=== PATIENT | female | born 1965 | race African-American/Black ===

== ENCOUNTER → 2017-12-19 | Outpatient (CLI) | payer MEDICARE ==
[2017-12-19 15:35] LABS: HCT 41.2 % (34.0-46.0); HGB 13.5 gm/dL (11.4-16.0); MCH 27.5 pg (25.0-35.0); MCHC 32.8 g/dL (31.0-37.0); MCV 83.9 fL (80.0-100.0); Mean Platelet Volume 7.1; Platelet Count 224 k/uL (150-450); RBC 4.91 m/uL (3.80-5.40); RDW 14.3 % (11.5-15.5); WBC 4.8 k/uL (3.8-10.6)
[2017-12-19 15:54] LABS: ALT 20 U/L (9-52); AST 17 U/L (14-36); Albumin 3.7 g/dL (3.5-5.0); Alkaline Phosphatase 82 U/L (38-126); Anion Gap 9 mmol/L; Blood Urea Nitrogen 11 mg/dL (7-17); Calcium 9.3 mg/dL (8.4-10.2); Carbon Dioxide 31 mmol/L (22-30); Chloride 101 mmol/L (98-107); Cholesterol 207 mg/dL (<200); Glucose 84 mg/dL (74-99); HDL Cholesterol 68 mg/dL (40-60); LDL Cholesterol,Calculated 120 mg/dL (0-99); Potassium 4.1 mmol/L (3.5-5.1); Sodium 141 mmol/L (137-145); Total Bilirubin 0.3 mg/dL (0.2-1.3); Total Protein 6.9 g/dL (6.3-8.2); Triglycerides 95 mg/dL (<150)
[2017-12-19 16:15] VITALS: BP 161/100; PULSE 75; TEMP 97.6; BMI 45.3
[2017-12-20 00:32] LABS: Iron Saturation 18.93 (12.00-45.00)
[2017-12-20 00:37] LABS: Vitamin D 25 Hydroxy 15.7 ng/mL (30.0-100.0)
[2017-12-20 02:34] LABS: Hemoglobin A1C 5.2 % (4.0-6.0)
--- NOTE | 2018-01-05 20:30 | P.HPBAR ---
Bariatric H&P - History & Physicial H&P Date: 12/19/17 History & Physicial: Visit/CC: Patient initial contact: Initial weight: Initial weight in pounds: Height: Initial BMI: Last weight: Current weight: Current weight in pounds: Current BMI: [place] body weight (based on NIH guidelines): Excess body weight loss: The patient is a 51 year-old F who presents for Bariatric Assessment. DATE OF SERVICE: 12/19/2017 REASON FOR CONSULTATION: Initial bariatric evaluation HISTORY OF PRESENT ILLNESS: Alexa Anna is a 52-year-old female who comes in with long-standing morbid obesity. She reports trying diet pills including Weight Watchers as well as portion control. Most weight loss was 10 pounds. She is about trouble sleeping including sleep apnea. She has chronic lower extremity edema. She has developed hypertension including osteoarthritis of the back, bilateral knees, left ankle secondary to obesity. She has a family history of diabetes type 2 in her brother. She comes in for evaluation for the sleeve gastrectomy. She also has a family history of morbid obesity. At height of 5 feet 2.5 inches, ideal body weight is 135 pounds. Her highest weight was 252 pounds. She comes in 251 pounds. Body mass index is 45.4. She is 116 pounds overweight. PAST MEDICAL HISTORY: 1. Morbid obesity. 2. Body mass index of 45.4 3. Osteoarthritis of the knees. 4. Osteoarthritis of the left ankle. 5. Osteoarthritis of the lower back. 6. Obstructive sleep apnea. 7. Hypertensive heart disease. 8. Tendinitis right elbow. PAST SURGICAL HISTORY: 1. Cholecystectomy 2. Bilateral carpal tunnel release 3. History of back surgery HOME MEDICATIONS: 1. [place] 2. Vitamin D ALLERGIES: Penicillin SOCIAL HISTORY: No active tobacco use. Past tobacco use. FAMILY HISTORY: No family history of ulcerative colitis disease or Crohn's disease. Family history of morbid obesity. No lupus in the family. No reports of stomach or esophageal cancer. Family history of diabetes type 2. REVIEW OF ORGAN SYSTEMS: CONSTITUTIONAL: At height of 5 feet 2.5 inches, ideal body weight is 135 pounds. Her highest weight was 252 pounds. She comes in 251 pounds. Body mass index is 45.4. She is 116 pounds overweight. HEENT: Denies any active troubles with vision or hearing. No troubles with swallowing. ENDOCRINE: No diabetes. No hypothyroidism. CARDIOVASCULAR: No reports of palpitations or heart attacks or chest pain. RESPIRATORY: Has daytime somnolence. No asthma. GI: Denies any bright red blood per rectum. No diarrhea or constipation. MUSCULOSKELETAL: Has lower back pain and joint pain. Has osteoarthritis of the knees. History of bilateral lower extremity edema. NEURO: No headaches. No seizure disorders. PSYCH: No depression or suicidal ideation. RHEUMATOLOGIC: No lupus. No rheumatoid arthritis. HEMATOLOGIC: Denies any abnormal bleeding or bruising. No personal history of DVTs. SKIN: No rash. No skin cancer. PHYSICAL EXAM: VITAL SIGNS: Height 5 foot 2.5 inches, weight 251 pounds. BMI 45.4 Vital Signs Temp 97.6 F 12/19/17 16:09 Pulse 75 12/19/17 16:09 Resp BP 161/100 12/19/17 16:09 Pulse Ox GENERAL: Well-developed in no acute distress. HEENT: No scleral icterus. Extraocular movements grossly intact. Hears conversational speech. No nasal drainage. NECK: Supple without lymphadenopathy. CHEST: Nonlabored respirations with equal bilateral excursions. CARDIOVASCULAR: Regular rate and regular rhythm. Distal 2+ pulses. ABDOMEN: Obese, soft, nontender, nondistended. MUSCULOSKELETAL: No clubbing, cyanosis. Gross strength 5/5 distal lower extremities. 2+ pre-tibial pitting edema. Cervical spine tenderness. NEURO: No focal or lateralizing signs. Cranial nerves 2 through 12 grossly within normal limits. PSYCH: Appropriate affect. Alert and oriented to person, place and time. SKIN: Good skin turgor. Well perfused. ASSESSMENT: 1. Morbid obesity due to excess calories 2. Body mass index of 45.4 3. Osteoarthritis of the knees. 4. Osteoarthritis of the left ankle. 5. Osteoarthritis of the lower back. 6. Obstructive sleep apnea. 7. Hypertensive heart disease. 8. Tendinitis right elbow. 9. Dietary surveillance and counseling PLAN: 1. Surgical options including a band, gastric bypass, sleeve gastrectomy were described in detail. Alternatives such as gastric balloon including duodenal switch were described. 2. The [place] bariatric surgical collaborative data and outcomes calculator were described with surgical options. 3. Recommend a bariatric metabolic panel to evaluate for micro- including macronutrient deficiencies. 4. For history of daytime somnolence, recommend evaluation and treatment for sleep apnea. 5. Dietary surveillance and counseling was reviewed, I have asked increased protein intake to at least 70 grams daily. 6. Will need cardiac risk assessment. 7. Recommend medical risk assessment. 8. Psych assessment per insurance guidelines. 9. Follow up upon completion of upper endoscopy. 10. Recommend 12-lead EKG with family history of hypertensive heart disease. 11. Recommend upper endoscopy. Thank you for this consultation. Past Medical History Additional Past Medical History / Comment(s): gallstones History of Any Multi-Drug Resistant Organisms: None Reported Past Surgical History: Back Surgery, Orthopedic Surgery Additional Past Surgical History / Comment(s): clau carpal tunnel, tendonitis rt elbow and rt wrist, Past Anesthesia/Blood Transfusion Reactions: No Reported Reaction Past Psychological History: No Psychological Hx Reported Smoking Status: Former smoker Past Alcohol Use History: Occasional Additional Past Alcohol Use History / Comment(s): quit smoking 2010, started smoking age 16, 3 cigarettes daily Past Drug Use History: None Reported - Past Family History Mother Family Medical History: No Reported History Results - Labs 12/19/17 15:00 12/19/17 15:00 Bariatric Checklist Checklist: Plan: Checklist: EGD: 1. Hiatal hernia: 2. H. Pylori: HgbA1c: Vitamin D: Smoking: Former smoker Primary care physician referral: Psychiatry clearance: Cardiology clearance: Sleep study: Diet journal: VTE risk score: VTE risk level: Rehab needs at discharge:
== END | disposition home or self-care (01) ==
LOC: BARWHC3 14:08
PROVIDERS: ATTEND Surgery Plastic and Reconstructive Surgery
DX: E66.01 Morbid (severe) obesity due to excess calories (principal); M17.0 Bilateral primary osteoarthritis of knee; M47.9 Spondylosis, unspecified; M19.072 Primary osteoarthritis, left ankle and foot; G47.33 Obstructive sleep apnea (adult) (pediatric); I11.9 Hypertensive heart disease without heart failure; M77.9 Enthesopathy, unspecified; Z98.890 Other specified postprocedural states; Z87.891 Personal history of nicotine dependence; Z90.49 Acquired absence of other specified parts of digestive tract; Z79.891 Long term (current) use of opiate analgesic; Z68.42 Body mass index [BMI] 45.0-49.9, adult; Z79.899 Other long term (current) drug therapy; Z88.0 Allergy status to penicillin
CPT/HCPCS: 84425; 80061; 80053; 82607; 82728; 82746; 83540; 83550; 84443; 85027; 82306; 83036; 93005; G0463; 99211

== ENCOUNTER → 2018-01-16 | Day surgery (SDC) | payer MEDICARE ==
[2018-01-14 11:04] VITALS: BMI 44.2
[~2018-01-16] MED LIST: LACTATED RINGERS 1,000 ML IV SCH; LIDOCAINE 1% 20 ML VIAL (10MG/ML) FOR IV START INTRADERMA PRN; LIDOCAINE 1% INJ 10MG/ML (20 ML MDV) ONE; MIDAZOLAM 2 MG/2 ML VIAL IV PRN; PROPOFOL 10 MG/ML 20 ML VIAL IV ONE
--- NOTE | 2018-01-16 07:48 | P.GSHP ---
History of Present Illness H&P Date: 01/16/18 CHIEF COMPLAINT: GERD HISTORY OF PRESENT ILLNESS: The patient is a 52-year-old female who presents reports gastroesophageal reflux disease. Upper endoscopy was offered for further evaluation and management. PAST MEDICAL HISTORY: Please see list. PAST SURGICAL HISTORY: Please see list. MEDICATIONS: Please see list. ALLERGIES: Please see list. SOCIAL HISTORY: No illicit drug use FAMILY HISTORY: No reports of Crohn disease or ulcerative colitis. REVIEW OF ORGAN SYSTEMS: CONSTITUTIONAL: No reports of fevers or chills. GI: Denies any blood in stools or constipation. PHYSICAL EXAM: VITAL SIGNS: Stable GENERAL: Well-developed and pleasant in no acute distress. HEENT: No scleral icterus. Extraocular movements grossly intact. Moist buccal mucosa. NECK: Supple without lymphadenopathy. CHEST: Unlabored respirations. Equal bilateral excursions. CARDIOVASCULAR: Regular rate and rhythm. Distal 2+ pulses. ABDOMEN: Soft, nondistended. MUSCULOSKELETAL: No clubbing, cyanosis, or edema. ASSESSMENT: 1. Gastroesophageal reflux disease PLAN: 1. Recommend proceeding with an upper endoscopy Past Medical History Additional Past Medical History / Comment(s): CHRONIC PAIN History of Any Multi-Drug Resistant Organisms: None Reported Past Surgical History: Back Surgery, Cholecystectomy, Orthopedic Surgery Additional Past Surgical History / Comment(s): clau carpal tunnel, tendonitis rt elbow and rt wrist,. COLONOSCOPY Past Anesthesia/Blood Transfusion Reactions: No Reported Reaction Smoking Status: Former smoker - Past Family History Mother Family Medical History: No Reported History Medications and Allergies Home Medications Medication Instructions Recorded Confirmed Type Ergocalciferol [Vitamin D2] 50,000 unit PO FR 05/01/16 01/14/18 History Hydrocodone/Acetaminophen [Lortab 1 tab PO TID 05/01/16 01/14/18 History 7.5-325 mg Tablet] Cyclobenzaprine [Flexeril] 10 mg PO HS 01/14/18 01/14/18 History Allergies Allergy/AdvReac Type Severity Reaction Status Date / Time Penicillins Allergy swelling Verified 01/14/18 10:58 in mouth
[2018-01-16 11:16] VITALS: TEMP 97.2
--- NOTE | 2018-01-16 12:01 | P.PCN ---
Date of Procedure: 01/16/18 Description of Procedure: PREOPERATIVE DIAGNOSIS: Gastroesophageal reflux disease. Morbid obesity. POSTOPERATIVE DIAGNOSIS: Morbid obesity. Gastritis. Gastroesophageal reflux disease. OPERATION: Esophagogastroduodenoscopy with biopsies along antrum. SURGEON: Libby Carey MD ANESTHESIA: MAC. INDICATIONS: The patient is a 52-year-old female who presents with a history of reflux disease. Benefits and risks of the procedure were described. Informed consent was obtained. DESCRIPTION: The patient was brought into the endoscopy suite and laid in the left lateral decubitus position. An Olympus gastroscope was passed along the posterior oropharynx down to the distal esophagus where the squamocolumnar junction was encountered at 37 cm from the incisors. The stomach was entered and no bile reflux was found. Additional findings are listed below. Biopsies with cold forceps were obtained of the antrum. The first through third portion of the duodenum was examined and unremarkable. Retroflexion of the scope confirmed Hill grade 3 lower esophageal valve. The squamocolumnar junction demostrated LA grade A erosive esophagitis. The stomach was desufflated. The patient tolerated the procedure well. FINDINGS: Squamocolumnar junction 37 cm from the incisors. Diaphragmatic hiatus at 37 cm. Hill grade 3 lower esophageal valve. LA grade A erosive esophagitis. No active duodenitis. Chronic gastritis RECOMMENDATIONS: Continue medical therapy. Further recommendations pending results of pathology report. Upper endoscopy as needed. Plan - Discharge Summary New Discharge Prescriptions: No Action Hydrocodone/Acetaminophen [Lortab 7.5-325 mg Tablet] 1 tab PO TID Ergocalciferol [Vitamin D2] 50,000 unit PO FR Cyclobenzaprine [Flexeril] 10 mg PO HS Discharge Medication List Ergocalciferol [Vitamin D2] 50,000 unit PO FR 05/01/16 [History] Hydrocodone/Acetaminophen [Lortab 7.5-325 mg Tablet] 1 tab PO TID 05/01/16 [ History] Cyclobenzaprine [Flexeril] 10 mg PO HS 01/14/18 [History]
[2018-01-16 12:09] VITALS: BP 138/65; PULSE 80; RESP 16
== END | disposition home or self-care (01) ==
LOC: ORWHC2ENDO 09:38
PROVIDERS: ATTEND Surgery Plastic and Reconstructive Surgery
DX: K29.50 Unspecified chronic gastritis without bleeding (principal); B96.81 Helicobacter pylori [H. pylori] as the cause of diseases classified elsewhere; K22.10 Ulcer of esophagus without bleeding; Z87.891 Personal history of nicotine dependence; E66.01 Morbid (severe) obesity due to excess calories; Z68.41 Body mass index [BMI] 40.0-44.9, adult; Z79.891 Long term (current) use of opiate analgesic; Z79.899 Other long term (current) drug therapy; Z88.0 Allergy status to penicillin
CPT/HCPCS: 43239; J2001; J2704; 88305; 88342

== ENCOUNTER → 2018-02-13 | Outpatient (CLI) | payer MEDICARE ==
[2018-02-13 15:26] VITALS: BP 148/82; PULSE 66; RESP 14; TEMP 98.8; BMI 44.2
--- NOTE | 2018-02-13 15:40 | P.PN ---
Subjective Progress Note Date: 02/13/18 DATE OF SERVICE: 02/13/2018 CHIEF COMPLAINT: Bariatric evaluation HISTORY OF PRESENT ILLNESS: Alexa Anna is a 52-year-old female who initially presents to the bariatric office 12/19/2017. She is 2 months out. At height of 5 feet 2.5 inches, her ideal body weight is 135 pounds. Her highest weight was 252 pounds. She comes in 245 pounds from her last visit of 251 pounds , 2 months ago. She has lost 7 pounds. Body mass index is 45.4 down to 44.3. She is 110 pounds overweight. She comes in and has lost weight. She has H. pylori infection. PAST MEDICAL HISTORY: 1. Morbid obesity. 2. Body mass index of 45.4, initial 3. Osteoarthritis of the knees. 4. Osteoarthritis of the left ankle. 5. Osteoarthritis of the lower back. 6. Obstructive sleep apnea. 7. Hypertensive heart disease. 8. Tendinitis right elbow. PAST SURGICAL HISTORY: 1. Cholecystectomy 2. Bilateral carpal tunnel release 3. History of back surgery HOME MEDICATIONS: 1. [place] 2. Vitamin D ALLERGIES: Penicillin SOCIAL HISTORY: No active tobacco use. Past tobacco use. FAMILY HISTORY: No family history of ulcerative colitis disease or Crohn's disease. Family history of morbid obesity. No lupus in the family. No reports of stomach or esophageal cancer. Family history of diabetes type 2. REVIEW OF ORGAN SYSTEMS: CONSTITUTIONAL: At height of 5 feet 2.5 inches, ideal body weight is 135 pounds. Her highest weight was 252 pounds. She comes in 245 pounds. Body mass index is 45.4 down to 44.3. She is 110 pounds overweight. HEENT: Denies any active troubles with vision or hearing. No troubles with swallowing. ENDOCRINE: No diabetes. No hypothyroidism. CARDIOVASCULAR: No reports of palpitations or heart attacks or chest pain. RESPIRATORY: Has daytime somnolence. No asthma. GI: Denies any bright red blood per rectum. No diarrhea or constipation. MUSCULOSKELETAL: Has lower back pain and joint pain. Has osteoarthritis of the knees. History of bilateral lower extremity edema. NEURO: No headaches. No seizure disorders. PSYCH: No depression or suicidal ideation. RHEUMATOLOGIC: No lupus. No rheumatoid arthritis. HEMATOLOGIC: Denies any abnormal bleeding or bruising. No personal history of DVTs. SKIN: No rash. No skin cancer. PHYSICAL EXAM: VITAL SIGNS: Height 5 foot 2.5 inches, weight 245 pounds. BMI 44.3 Vital Signs Temp 98.8 F 02/13/18 15:11 Pulse 66 02/13/18 15:11 Resp 14 02/13/18 15:11 BP 148/82 02/13/18 15:11 Pulse Ox GENERAL: Well-developed in no acute distress. HEENT: No scleral icterus. Extraocular movements grossly intact. Hears conversational speech. No nasal drainage. NECK: Supple without lymphadenopathy. CHEST: Nonlabored respirations with equal bilateral excursions. CARDIOVASCULAR: Regular rate and regular rhythm. Distal 2+ pulses. ABDOMEN: Obese, soft, nontender, nondistended. MUSCULOSKELETAL: No clubbing, cyanosis. Gross strength 5/5 distal lower extremities. NEURO: No focal or lateralizing signs. Cranial nerves 2 through 12 grossly within normal limits. PSYCH: Appropriate affect. Alert and oriented to person, place and time. SKIN: Good skin turgor. Well perfused. EGD FINDINGS: Squamocolumnar junction 37 cm from the incisors. Diaphragmatic hiatus at 37 cm. Hill grade 3 lower esophageal valve. LA grade A erosive esophagitis. No active duodenitis. Chronic gastritis Final Pathologic Diagnosis GASTRIC ANTRUM, BIOPSY: CHRONIC ACTIVE GASTRITIS WITH FOCAL FEATURES OF ULCERATION. IMMUNOPEROXIDASE STAIN POSITIVE FOR HELICOBACTER PYLORI ORGANISMS LABS: Vitamin D low Vitamin B-1 low EKG: abnormal ASSESSMENT: 1. Morbid obesity due to excess calories 2. Body mass index of 45.4 to 44.3 3. Osteoarthritis of the knees. 4. Osteoarthritis of the left ankle. 5. Osteoarthritis of the lower back. 6. Obstructive sleep apnea. 7. Hypertensive heart disease. 8. Dietary surveillance and counseling 9. Vitamin D deficiency 10. Thiamine deficiency 11. H. pylori gastritis 12. Abnormal EKG PLAN: 1. Recommend H. pylori treatment. 2. Replace Vitamin D. 3. EKG is abnormal and recommend referral to pbx mechanic. 4. Need psych assessment. 5. Vitamin D supplement advised. Objective - Vital Signs Vital signs: Vital Signs Temp 98.8 F 02/13/18 15:11 Pulse 66 02/13/18 15:11 Resp 14 02/13/18 15:11 BP 148/82 02/13/18 15:11 Pulse Ox Intake & Output 02/12/18 02/13/18 02/13/18 18:59 06:59 18:59 Weight 111.584 kg
== END | disposition home or self-care (01) ==
LOC: BARWHC3 14:29
PROVIDERS: ATTEND Surgery Plastic and Reconstructive Surgery
DX: E66.01 Morbid (severe) obesity due to excess calories (principal); M17.0 Bilateral primary osteoarthritis of knee; M19.079 Primary osteoarthritis, unspecified ankle and foot; M19.90 Unspecified osteoarthritis, unspecified site; G47.33 Obstructive sleep apnea (adult) (pediatric); I11.9 Hypertensive heart disease without heart failure; E55.9 Vitamin D deficiency, unspecified; E51.9 Thiamine deficiency, unspecified; B96.81 Helicobacter pylori [H. pylori] as the cause of diseases classified elsewhere; R94.31 Abnormal electrocardiogram [ECG] [EKG]; Z68.41 Body mass index [BMI] 40.0-44.9, adult; Z87.891 Personal history of nicotine dependence; Z88.0 Allergy status to penicillin; Z79.891 Long term (current) use of opiate analgesic; Z79.899 Other long term (current) drug therapy
CPT/HCPCS: 99211

== ENCOUNTER → 2018-07-17 | Outpatient (CLI) | payer MEDICARE | END | disposition home or self-care (01) | LOC: LABWHC1 15:06 | PROVIDERS: ATTEND Surgery Plastic and Reconstructive Surgery | DX: Z53.9 Procedure and treatment not carried out, unspecified reason (principal) ==

== ENCOUNTER → 2018-07-17 | Outpatient (CLI) | payer MEDICARE ==
[2018-07-17 14:15] VITALS: BP 139/79; PULSE 72; TEMP 97.6; BMI 44.0
--- NOTE | 2018-07-17 14:50 | P.PN ---
Subjective Progress Note Date: 07/17/18 HPI: She comes in for her sleeve gastrectomy. "I am ready for my surgery." ABDOMEN: No abdominal pain ASSESSMENT: 1. Morbid obesity PLAN: 1. 2 week protein diet 2. Sleeve gastrectomy consent reviewed 3. [facility] results reviewed Objective - Vital Signs Vital signs: Vital Signs Temp 97.6 F 07/17/18 14:10 Pulse 72 07/17/18 14:10 Resp BP 139/79 07/17/18 14:10 Pulse Ox Intake & Output 07/16/18 07/17/18 07/17/18 18:59 06:59 18:59 Weight 111.085 kg
[2018-07-17 16:53] LABS: Basophils % (A) 0 %; Eosinophils # (A) 0.1 k/uL (0-0.7); Eosinophils % (A) 2 %; HCT 41.6 % (34.0-46.0); HGB 13.5 gm/dL (11.4-16.0); Lymphocytes # (A) 2.2 k/uL (1.0-4.8); Lymphocytes % (A) 35 %; MCH 27.7 pg (25.0-35.0); MCHC 32.4 g/dL (31.0-37.0); MCV 85.5 fL (80.0-100.0); Mean Platelet Volume 7.1; Monocytes # (A) 0.4 k/uL (0-1.0); Monocytes % (A) 6 %; Neutrophils # (A) 3.4 k/uL (1.3-7.7); Neutrophils % (A) 55 %; Platelet Count 265 k/uL (150-450); RBC 4.87 m/uL (3.80-5.40); RDW 14.8 % (11.5-15.5); WBC 6.2 k/uL (3.8-10.6)
[2018-07-18 03:56] LABS: Albumin 3.9 g/dL (3.80-4.90); Albumin/Globulin Ratio 2.05 (1.20-2.10); Anion Gap 7.1 mmol/L (4.00-12.00); Calcium 8.8 mg/dL (8.7-10.3); Carbon Dioxide 28.9 mmol/L (21.6-31.8); Globulin 1.9 g/dL (2.1-3.7); Potassium 4.3 mmol/L (3.5-5.5); Total Bilirubin 0.3 mg/dL (0.2-1.2); Total Protein 5.8 g/dL (6.2-8.2)
== END | disposition home or self-care (01) ==
LOC: BARWHC3 13:50
PROVIDERS: ATTEND Surgery Plastic and Reconstructive Surgery
DX: Z01.812 Encounter for preprocedural laboratory examination (principal); E66.01 Morbid (severe) obesity due to excess calories; Z68.41 Body mass index [BMI] 40.0-44.9, adult
CPT/HCPCS: 80053; 85025; 36415; G0463; 99211

== ENCOUNTER → 2018-07-26 | Outpatient (CLI) | payer MEDICARE ==
--- NOTE | 2018-07-26 12:58 | P.PN ---
Subjective Progress Note Date: 07/26/18 DATE OF SERVICE: 07/26/2018 CHIEF COMPLAINT: Status post sleeve gastrectomy HISTORY OF PRESENT ILLNESS: Alexa Anna is a 52-year-old female who is status post sleeve gastrectomy 07/22/2018. She is tolerating liquids and had 3 bowel movements without blood. No reports of infection of her incision. At height of 5 feet 2.5 inches, her ideal body weight is 135 pounds. Her highest weight was 252 pounds. She comes in 239 pounds from 244 pounds, 2 weeks ago. She has lost 5 pounds in 2 weeks. Body mass index is 45.4 down to 43.1. Percent excess weight loss is 11% PHYSICAL EXAM: VITAL SIGNS: Height 5 foot 2.5 inches, weight 239 pounds. BMI 43.1 Vital Signs Temp 98.5 F 07/26/18 11:32 Pulse 75 07/26/18 11:32 Resp BP 155/79 07/26/18 11:32 Pulse Ox GENERAL: Well-developed in no acute distress. HEENT: No scleral icterus. Extraocular movements grossly intact. Hears conversational speech. No nasal drainage. NECK: Supple without lymphadenopathy. CHEST: Nonlabored respirations with equal bilateral excursions. CARDIOVASCULAR: Regular rate and regular rhythm. Distal 2+ pulses. ABDOMEN: Obese, soft, nontender, nondistended. No cellulitis or infection. MUSCULOSKELETAL: No clubbing, cyanosis. Gross strength 5/5 distal lower extremities. NEURO: No focal or lateralizing signs. Cranial nerves 2 through 12 grossly within normal limits. PSYCH: Appropriate affect. Alert and oriented to person, place and time. SKIN: Good skin turgor. Well perfused. ASSESSMENT: 1. Morbid obesity due to excess calories 2. Body mass index of 45.4 to 43.1 3. Osteoarthritis of the knees. 4. Osteoarthritis of the left ankle. 5. Osteoarthritis of the lower back. 6. Obstructive sleep apnea. 7. Hypertensive heart disease. 8. Dietary surveillance and counseling 9. Vitamin D deficiency 10. Thiamine deficiency 11. H. pylori gastritis 12. Status post sleeve gastrectomy PLAN: 1. Recommend 64 ounces daily advised. 2. Recommend stage II bariatric diet with protein shakes 3. Follow-up in 2 weeks.
[2018-07-26 14:35] VITALS: BP 155/79; PULSE 75; TEMP 98.5; BMI 43.1
== END | disposition home or self-care (01) ==
LOC: BARWHC3 11:32
PROVIDERS: ATTEND Surgery Plastic and Reconstructive Surgery
DX: Z48.815 Encounter for surgical aftercare following surgery on the digestive system (principal); E66.01 Morbid (severe) obesity due to excess calories; M17.0 Bilateral primary osteoarthritis of knee; M19.072 Primary osteoarthritis, left ankle and foot; M47.816 Spondylosis without myelopathy or radiculopathy, lumbar region; G47.33 Obstructive sleep apnea (adult) (pediatric); I11.9 Hypertensive heart disease without heart failure; E55.9 Vitamin D deficiency, unspecified; E51.9 Thiamine deficiency, unspecified; K29.70 Gastritis, unspecified, without bleeding; B96.81 Helicobacter pylori [H. pylori] as the cause of diseases classified elsewhere; Z71.3 Dietary counseling and surveillance; Z68.41 Body mass index [BMI] 40.0-44.9, adult; Z98.84 Bariatric surgery status
CPT/HCPCS: 99211

== ENCOUNTER → 2018-07-31 | Outpatient (CLI) | payer MEDICARE ==
[2018-07-31 10:47] VITALS: BP 137/77; PULSE 62; TEMP 97.7; BMI 41.5
== END | disposition home or self-care (01) ==
LOC: BARWHC3 10:05
PROVIDERS: ATTEND Surgery Plastic and Reconstructive Surgery
DX: E66.01 Morbid (severe) obesity due to excess calories (principal); Z68.41 Body mass index [BMI] 40.0-44.9, adult
CPT/HCPCS: 97802; G0463; 99211

== ENCOUNTER → 2018-08-14 | Outpatient (CLI) | payer MEDICARE ==
--- NOTE | 2018-08-14 14:59 | P.PN ---
Subjective Progress Note Date: 08/14/18 HPI: She is s/p sleeve gastrectomy. I have lost my butt! No fevers or chills. ABDOMEN: Has left upper quadrant incision with serosanguinous drainage. No infection. A/P: 1. Get 1 month labs 2. Exercise next month. 3. Local wound care described.
[2018-08-14 16:19] LABS: HCT 44.9 % (34.0-46.0); HGB 14.2 gm/dL (11.4-16.0); MCH 26.8 pg (25.0-35.0); MCHC 31.6 g/dL (31.0-37.0); Mean Platelet Volume 7.4; Platelet Count 261 k/uL (150-450); RBC 5.28 m/uL (3.80-5.40); RDW 14.4 % (11.5-15.5); WBC 5.1 k/uL (3.8-10.6)
[2018-08-14 16:21] LABS: Partial Thromboplastin Time 25.9 sec (22.0-30.0); Prothrombin Time 10.4 sec (9.0-12.0)
[2018-08-15 03:36] LABS: Parathyroid Hormone Intact 109.7 pg/mL (14.0-72.0)
[2018-08-15 04:04] LABS: Iron Saturation 16.47 (12.00-45.00)
[2018-08-15 04:07] LABS: Albumin 4.3 g/dL (3.80-4.90); Albumin/Globulin Ratio 1.95 (1.20-2.10); Anion Gap 11.7 mmol/L (4.00-12.00); Calcium 9.5 mg/dL (8.7-10.3); Carbon Dioxide 27.3 mmol/L (21.6-31.8); Globulin 2.2 g/dL (2.1-3.7); LDL Cholesterol,Calculated 110.4 mg/dL (0.0-131.0); Magnesium 1.7 mg/dL (1.5-2.4); Phosphorus 3.5 mg/dL (2.4-5.1); Potassium 3.7 mmol/L (3.5-5.5); Total Bilirubin 0.4 mg/dL (0.3-1.2); Total Protein 6.5 g/dL (6.2-8.2); VLDL Calculation 17.6 mg/dL (5.00-40.00)
[2018-08-15 04:15] LABS: Folate, Serum 9.3 ng/mL
[2018-08-15 05:14] LABS: Hemoglobin A1C 5.7 % (4.0-6.0)
[2018-08-15 10:48] VITALS: BP 111/74; PULSE 69; TEMP 97.6; BMI 40.3
[2018-08-15 13:56] LABS: Zinc, Serum 88 ug/dL (60-130)
[2018-08-16 08:13] LABS: Vitamin B1 51 ug/L (38-122)
[2018-08-16 08:16] LABS: Vitamin A 29 ug/dL (38-106)
== END | disposition home or self-care (01) ==
LOC: BARWHC3 13:56
PROVIDERS: ATTEND Surgery Plastic and Reconstructive Surgery
DX: Z48.815 Encounter for surgical aftercare following surgery on the digestive system (principal); E66.01 Morbid (severe) obesity due to excess calories; E21.1 Secondary hyperparathyroidism, not elsewhere classified; E89.1 Postprocedural hypoinsulinemia; D50.9 Iron deficiency anemia, unspecified; K90.9 Intestinal malabsorption, unspecified; E55.9 Vitamin D deficiency, unspecified; K76.9 Liver disease, unspecified; N19 Unspecified kidney failure; K50.90 Crohn's disease, unspecified, without complications; Z98.84 Bariatric surgery status
CPT/HCPCS: 36415; 80053; 80061; 82306; 82525; 82607; 82728; 82746; 83036; 83540; 83550; 83735; 83970; 84100; 84134; 84255; 84425; 84443; 84590; 84630; 85027; 85610; 85730; 99211

== ENCOUNTER → 2019-06-11 | Outpatient (CLI) | payer MEDICARE ==
--- NOTE | 2019-06-11 17:26 | P.PN ---
Subjective Progress Note Date: 06/11/19 DATE OF SERVICE: 06/11/2019 CHIEF COMPLAINT: Status post sleeve gastrectomy HISTORY OF PRESENT ILLNESS: Alexa Anna is a 52-year-old female who is status post sleeve gastrectomy 07/22/2018. She is 1 year out. "I have no problems since surgery." She is unhappy with her legs and abdomen from her ex cess skin. She comes in with a new problem of fluid leaking from the belly button unrelated to her bariatric surgery. No reports of gastroesophageal reflux disease. She also comes in with problems with hygiene and lower back pain from her pannus. She is evaluating for removal of her pannus. At height of 5 feet 2.5 inches, her ideal body weight is 135 pounds. Her highest weight was 252 pounds. She comes in 217 pounds from 224 pounds, 10 months ago. She has been lost to follow up. She has lost 7 pounds in 10 months since her last visit. Lifetime weight loss of 35 pounds. Body mass index is 45.4 down to 39.1. Percent excess weight loss is 30 %. PAST MEDICAL HISTORY: 1. Morbid obesity. 2. Body mass index of 45.4, initial 3. Osteoarthritis of the knees. 4. Osteoarthritis of the left ankle. 5. Osteoarthritis of the lower back. 6. Obstructive sleep apnea. 7. Hypertensive heart disease. 8. Tendinitis right elbow. 9. Hypothyroidism PAST SURGICAL HISTORY: 1. Cholecystectomy 2. Bilateral carpal tunnel release 3. History of back surgery HOME MEDICATIONS: Home Medications Medication Instructions Recorded Confirmed Cyclobenzaprine [Flexeril] 10 mg PO HS 01/14/18 07/23/19 Levothyroxine Sodium [Synthroid] 50 mcg PO DAILY 07/12/18 07/23/19 Calcium Citrate 1,200 mg PO DAILY 06/24/19 07/23/19 Ergocalciferol [Vitamin D2 50,000 unit PO DAILY 06/24/19 07/23/19 (DRISDOL)] Vitamin A Acetate [Vitamin A] 10,000 unit PO DAILY 06/24/19 07/23/19 Previous Rx's Medication Instructions Recorded Omeprazole 40 mg PO DAILY #30 capsule. 02/13/18 Nystatin 100,000 Unit/gm Powd 1 applic TOPICAL BID #60 powder 06/11/19 [Mycostatin Powder] ALLERGIES: Penicillin SOCIAL HISTORY: No active tobacco use. Past tobacco use. FAMILY HISTORY: No family history of ulcerative colitis disease or Crohn's disease. Family history of morbid obesity. No lupus in the family. No reports of stomach or esophageal cancer. Family history of diabetes type 2. REVIEW OF ORGAN SYSTEMS: CONSTITUTIONAL: At height of 5 feet 2.5 inches, ideal body weight is 135 pounds. Her highest weight was 252 pounds, BMI 45.5 HEENT: Denies any active troubles with vision or hearing. No troubles with swallowing. ENDOCRINE: No diabetes. No hypothyroidism. CARDIOVASCULAR: No reports of palpitations or heart attacks or chest pain. RESPIRATORY: Has daytime somnolence. No asthma. GI: Denies any bright red blood per rectum. No diarrhea or constipation. MUSCULOSKELETAL: Has lower back pain and joint pain. Has osteoarthritis of the knees. History of bilateral lower extremity edema improved. NEURO: No headaches. No seizure disorders. PSYCH: No depression or suicidal ideation. RHEUMATOLOGIC: No lupus. No rheumatoid arthritis. HEMATOLOGIC: Denies any abnormal bleeding or bruising. No personal history of DVTs. SKIN: No rash. No skin cancer. Has panniculitis. PHYSICAL EXAM: VITAL SIGNS: Height 5 foot 2.5 inches, weight 217 pounds. BMI 39.1 Vital Signs Temp 98.2 F 06/11/19 17:00 Pulse 67 06/11/19 17:00 Resp BP 156/87 06/11/19 17:00 Pulse Ox GENERAL: Well-developed in no acute distress. HEENT: No scleral icterus. Extraocular movements grossly intact. Hears conversational speech. No nasal drainage. NECK: Supple without lymphadenopathy. CHEST: Nonlabored respirations with equal bilateral excursions. CARDIOVASCULAR: Regular rate and regular rhythm. Distal 2+ pulses. ABDOMEN: No active drainage from the umbilicus. No hernia. Moderate sized pannus over pubis 4-cm with hyperpigmentation. MUSCULOSKELETAL: No clubbing, cyanosis. Gross strength 5/5 distal lower extremities. NEURO: No focal or lateralizing signs. Cranial nerves 2 through 12 grossly within normal limits. PSYCH: Appropriate affect. Alert and oriented to person, place and time. SKIN: Good skin turgor. Well perfused. ASSESSMENT: 1. Morbid obesity due to excess calories 2. Body mass index of 45.4 to 39.1 3. Osteoarthritis of the knees. 4. Osteoarthritis of the left ankle. 5. Osteoarthritis of the lower back. 6. Obstructive sleep apnea. 7. Hypertensive heart disease. 8. Dietary surveillance and counseling 9. Vitamin D deficiency 10. Thiamine deficiency 11. H. pylori gastritis 12. Status post sleeve gastrectomy 13. Panniculitis PLAN: 1. Recommend CT of abdomen/pelvis for drainage of the umbilicus and possible urachal cyst. 2. Recommmend treatment of panniculitis with Nystatin powder prescribed. 3. Will need bariatric labs.
[2019-06-13 12:39] VITALS: BP 156/87; PULSE 67; TEMP 98.2; BMI 39.0
== END | disposition home or self-care (01) ==
LOC: BARWHC3 16:11
PROVIDERS: ATTEND Surgery Plastic and Reconstructive Surgery
DX: Z48.815 Encounter for surgical aftercare following surgery on the digestive system (principal); E66.01 Morbid (severe) obesity due to excess calories; M17.0 Bilateral primary osteoarthritis of knee; M19.072 Primary osteoarthritis, left ankle and foot; G47.33 Obstructive sleep apnea (adult) (pediatric); I11.9 Hypertensive heart disease without heart failure; E55.9 Vitamin D deficiency, unspecified; E03.9 Hypothyroidism, unspecified; E51.9 Thiamine deficiency, unspecified; K29.60 Other gastritis without bleeding; M79.3 Panniculitis, unspecified; Z68.39 Body mass index [BMI] 39.0-39.9, adult; Z71.3 Dietary counseling and surveillance; Z98.84 Bariatric surgery status; Z87.891 Personal history of nicotine dependence; Z90.49 Acquired absence of other specified parts of digestive tract; Z79.890 Hormone replacement therapy; Z79.899 Other long term (current) drug therapy; Z88.0 Allergy status to penicillin
CPT/HCPCS: 99211

== ENCOUNTER → 2019-06-13 | Outpatient (CLI) | payer MEDICARE ==
[2019-06-13 11:41] LABS: HCT 44.2 % (34.0-46.0); HGB 14.5 gm/dL (11.4-16.0); MCH 28.4 pg (25.0-35.0); MCHC 32.7 g/dL (31.0-37.0); MCV 86.9 fL (80.0-100.0); Mean Platelet Volume 6.8; Platelet Count 222 k/uL (150-450); RBC 5.09 m/uL (3.80-5.40); RDW 14.2 % (11.5-15.5); WBC 4.9 k/uL (3.8-10.6)
[2019-06-13 11:48] LABS: INR 0.9 (<1.2); Partial Thromboplastin Time 27.1 sec (22.0-30.0); Prothrombin Time 9.8 sec (9.0-12.0)
[2019-06-13 17:42] LABS: Albumin/Globulin Ratio 1.82 (1.60-3.17); Anion Gap 9.2 mmol/L (4.00-12.00); BUN/Creat Ratio 12.86 Ratio (12.00-20.00); Calcium 9.1 mg/dL (8.7-10.3); Carbon Dioxide 23.8 mmol/L (21.6-31.8); Chol/HDL Ratio 3.15; Globulin 2.2 g/dL (1.6-3.3); LDL Cholesterol,Calculated 112.6 mg/dL (0.0-131.0); Magnesium 1.6 mg/dL (1.5-2.4); Non-African American GFR(CKD) 97.5 (60.0-200.0); Phosphorus 3.7 mg/dL (2.4-5.1); Potassium 4.1 mmol/L (3.5-5.5); Total Bilirubin 0.4 mg/dL (0.3-1.2); Total Protein 6.2 g/dL (6.2-8.2); VLDL Calculation 18.4 mg/dL (5.00-40.00)
[2019-06-13 17:45] LABS: Iron Saturation 23.97 (12.00-45.00)
[2019-06-13 17:53] LABS: Ferritin 52.6 ng/mL (10.0-291.0); Vitamin D 25 Hydroxy 16.6 ng/mL (30.0-100.0)
[2019-06-13 17:54] LABS: Folate, Serum 5.7 ng/mL
[2019-06-13 18:53] LABS: Hemoglobin A1C 5.9 % (4.0-6.0)
[2019-06-16 14:50] LABS: Zinc, Serum 71 ug/dL (60-130)
[2019-06-17 06:08] LABS: Vitamin A 31 ug/dL (38-106)
[2019-06-17 06:23] LABS: Vit B1(Thiamine) 43 ug/L (38-122)
[2019-06-17 17:53] LABS: Selenium 103 mcg/L (63-160)
== END | disposition home or self-care (01) ==
LOC: LABWHC1 11:14
PROVIDERS: ATTEND Surgery Plastic and Reconstructive Surgery
DX: E66.01 Morbid (severe) obesity due to excess calories (principal); E21.1 Secondary hyperparathyroidism, not elsewhere classified; E89.1 Postprocedural hypoinsulinemia; D50.9 Iron deficiency anemia, unspecified; K90.9 Intestinal malabsorption, unspecified; E55.9 Vitamin D deficiency, unspecified; K76.9 Liver disease, unspecified; N19 Unspecified kidney failure; K50.90 Crohn's disease, unspecified, without complications
CPT/HCPCS: 36415; 80053; 80061; 82306; 82525; 82607; 82728; 82746; 83036; 83540; 83550; 83735; 83970; 84100; 84134; 84255; 84425; 84443; 84590; 84630; 85027; 85610; 85730

== ENCOUNTER → 2019-06-28 | Outpatient (CLI) | payer MEDICARE ==
--- NOTE | 2019-06-29 16:32 | CT ---
EXAMINATION TYPE: CT abdomen pelvis w con DATE OF EXAM: 06/28/2019 COMPARISON: None HISTORY: umbilical drainage and pain CT DLP: 1728.2 mGycm Automated exposure control for dose reduction was used. TECHNIQUE: Helical acquisition of images from the lung bases through the pelvis have been completed. CONTRAST: Performed with Oral Contrast and with IV Contrast, patient injected with 100 mL of Isovue 300. FINDINGS: Along the umbilical region there is soft tissue attenuation present, some local inflammator y change compatible with patient's history of drainage and pain. No focal fluid collection however. P atient is post gastric sleeve surgery. LUNG BASES: No significant abnormality is appreciated. AORTA: No significant abnormality is appreciated. LIVER/GB: Low dense focus is present centrally within the right lobe of the liver possibly internal s eptation, focus measures 4.6 cm in greatest dimension and is likely representing hepatic cysts. Gallb ladder is not seen.. PANCREAS: No significant abnormality is seen. SPLEEN: No significant abnormality is seen. ADRENALS: No significant abnormality is seen. KIDNEYS: No significant abnormality is seen. REPRODUCTIVE ORGANS: No significant abnormality is seen BOWEL: No significant abnormality is seen. FREE AIR: No Free Air visible. ASCITES: None visible. PELVIC ADENOPATHY: None visualized. RETROPERITONEAL ADENOPATHY: No Retroperitoneal Adenopathy visible. URINARY BLADDER: Wall is thickened likely due to lack of distention.. OSSEOUS STRUCTURES: Degenerative disc changes are present at the lumbosacral junction.. IMPRESSION: INFLAMMATORY CHANGES ALONG THE LEVEL THE UMBILICUS. POSTOP CHANGE. PROBABLE HEPATIC CYST.
== END | disposition home or self-care (01) ==
LOC: RADCTMAIN 08:56
PROVIDERS: ATTEND Surgery Plastic and Reconstructive Surgery
DX: R19.05 Periumbilic swelling, mass or lump (principal); R10.32 Left lower quadrant pain; K57.92 Diverticulitis of intestine, part unspecified, without perforation or abscess without bleeding; Z98.890 Other specified postprocedural states
CPT/HCPCS: 74177; Q9967 ×2

== ENCOUNTER → 2019-07-23 | Outpatient (CLI) | payer MEDICARE ==
--- NOTE | 2019-07-23 14:40 | P.PN ---
Subjective Progress Note Date: 07/23/19 DATE OF SERVICE: 07/23/2019 CHIEF COMPLAINT: Status post sleeve gastrectomy HISTORY OF PRESENT ILLNESS: Alexa Anna is a 53-year-old female who is status post sleeve gastrectomy 07/22/2018. She is 1 year out. She comes in with problems with her skin and drainage from her belly button. She reports lower back pain from her pannus including skin infections of the skin. She denies any gastroesophageal reflux disease. No reports of abdominal pain. At height of 5 feet 2.5 inches, her ideal body weight is 135 pounds. Her highest weight was 252 pounds. She comes in 214 pounds from 217 pounds, 1 month ago. She has lost 2 pounds in 1 month. Lifetime weight loss of 38 pounds. Body mass index is 45.4 down to 38.6. Percent excess weight loss is 32 %. PAST MEDICAL HISTORY: 1. Morbid obesity due to excess calories. 2. Body mass index of 45.4, initial 3. Osteoarthritis of the knees. 4. Osteoarthritis of the left ankle. 5. Osteoarthritis of the lower back. 6. Obstructive sleep apnea. 7. Hypertensive heart disease. 8. Tendinitis right elbow. 9. Hypothyroidism PAST SURGICAL HISTORY: 1. Cholecystectomy 2. Bilateral carpal tunnel release 3. History of back surgery HOME MEDICATIONS: Home Medications Medication Instructions Recorded Confirmed Cyclobenzaprine [Flexeril] 10 mg PO HS 01/14/18 07/23/19 Levothyroxine Sodium [Synthroid] 50 mcg PO DAILY 07/12/18 07/23/19 Calcium Citrate 1,200 mg PO DAILY 06/24/19 07/23/19 Ergocalciferol [Vitamin D2 50,000 unit PO DAILY 06/24/19 07/23/19 (DRISDOL)] Vitamin A Acetate [Vitamin A] 10,000 unit PO DAILY 06/24/19 07/23/19 Previous Rx's Medication Instructions Recorded Omeprazole 40 mg PO DAILY #30 capsule. 02/13/18 Nystatin 100,000 Unit/gm Powd 1 applic TOPICAL BID #60 powder 06/11/19 [Mycostatin Powder] ALLERGIES: Penicillin SOCIAL HISTORY: No active tobacco use. Past tobacco use. FAMILY HISTORY: No family history of ulcerative colitis disease or Crohn's disease. Family history of morbid obesity. No lupus in the family. No reports of stomach or esophageal cancer. Family history of diabetes type 2. REVIEW OF ORGAN SYSTEMS: CONSTITUTIONAL: At height of 5 feet 2.5 inches, ideal body weight is 135 pounds. Her highest weight was 252 pounds, BMI 45.5 HEENT: Denies any active troubles with vision or hearing. No troubles with swallowing. ENDOCRINE: No diabetes. No hypothyroidism. CARDIOVASCULAR: No reports of palpitations or heart attacks or chest pain. RESPIRATORY: Has daytime somnolence. No asthma. GI: Denies any bright red blood per rectum. No diarrhea or constipation. MUSCULOSKELETAL: Has lower back pain and joint pain. Has osteoarthritis of the knees. History of bilateral lower extremity edema improved. NEURO: No headaches. No seizure disorders. PSYCH: No depression or suicidal ideation. RHEUMATOLOGIC: No lupus. No rheumatoid arthritis. HEMATOLOGIC: Denies any abnormal bleeding or bruising. No personal history of DVTs. SKIN: No rash. No skin cancer. Has panniculitis. PHYSICAL EXAM: VITAL SIGNS: Height 5 foot 2.5 inches, weight 214 pounds. BMI 38.6 Vital Signs Temp 98.3 F 07/23/19 14:41 Pulse 74 07/23/19 14:41 Resp BP 133/95 07/23/19 14:41 Pulse Ox GENERAL: Well-developed in no acute distress. HEENT: No scleral icterus. Extraocular movements grossly intact. Hears conversational speech. No nasal drainage. NECK: Supple without lymphadenopathy. CHEST: Nonlabored respirations with equal bilateral excursions. CARDIOVASCULAR: Regular rate and regular rhythm. Distal 2+ pulses. ABDOMEN: Hyperpigmentation of the pannus. Weight of pannus over 10 pounds. Pannus hangs over pubis. MUSCULOSKELETAL: No clubbing, cyanosis. Gross strength 5/5 distal lower extremities. NEURO: No focal or lateralizing signs. Cranial nerves 2 through 12 grossly within normal limits. PSYCH: Appropriate affect. Alert and oriented to person, place and time. SKIN: Good skin turgor. Well perfused. STUDIES: CT of the abdomen and pelvis independently reviewed with umbilical hernia and inflammation of the pannus. Moderate stool burden. No small bowel obstruction. REPORTS: Confirm hepatic cyst over 4-cm. ASSESSMENT: 1. Morbid obesity due to excess calories 2. Body mass index of 45.4 to 38.6 3. Osteoarthritis of the knees. 4. Osteoarthritis of the left ankle. 5. Osteoarthritis of the lower back. 6. Obstructive sleep apnea. 7. Hypertensive heart disease. 8. Dietary surveillance and counseling 9. Vitamin D deficiency 10. Thiamine deficiency 11. H. pylori gastritis 12. Status post sleeve gastrectomy 13. Panniculitis PLAN: 1. Recommend Nystatin powder for pannicultiis. 2. Recommend photos of panniculitis of the belly. 3. She is 1 year out and recommend bariatric labs. 4. Recommend repair of umbilical hernia, robotic assisted approach including resection of urachal cyst. 5. She is elevated risk for perioperative complications for infection due to her panniculitis, obesity, and umbilical hernia. Laboratory Last Values WBC 5.2 k/uL (3.8-10.6) 07/23/19 15:06 RBC 5.24 m/uL (3.80-5.40) 07/23/19 15:06 Hgb 14.5 gm/dL (11.4-16.0) 07/23/19 15:06 Hct 45.1 % (34.0-46.0) 07/23/19 15:06 MCV 86.2 fL (80.0-100.0) 07/23/19 15:06 MCH 27.7 pg (25.0-35.0) 07/23/19 15:06 MCHC 32.2 g/dL (31.0-37.0) 07/23/19 15:06 RDW 14.1 % (11.5-15.5) 07/23/19 15:06 Plt Count 229 k/uL (150-450) 07/23/19 15:06 PT 9.8 sec (9.0-12.0) 07/23/19 15:06 INR 0.9 (<1.2) 07/23/19 15:06 APTT 26.9 sec (22.0-30.0) 07/23/19 15:06 Sodium 142 mmol/L (135-145) 07/23/19 15:06 Potassium 4.3 mmol/L (3.5-5.5) 07/23/19 15:06 Chloride 106 mmol/L (96-109) 07/23/19 15:06 Carbon Dioxide 30.2 mmol/L (21.6-31.8) 07/23/19 15:06 Anion Gap 5.80 mmol/L (4.00-12.00) 07/23/19 15:06 BUN 9.0 mg/dL (9.0-27.0) 07/23/19 15:06 Creatinine 0.8 mg/dL (0.6-1.5) 07/23/19 15:06 Est GFR (CKD-EPI)AfAm 96.2 (60.0-200.0) 07/23/19 15:06 Est GFR (CKD-EPI)NonAf 83.0 (60.0-200.0) 07/23/19 15:06 BUN/Creatinine Ratio 11.25 Ratio (12.00-20.00) L 07/23/19 15:06 Glucose 84 mg/dL (70-110) 07/23/19 15:[address] Glu mg/dL 123 07/23/19 15:06 Hemoglobin A1c 5.9 % (4.0-6.0) 07/23/19 15:06 Calcium 9.2 mg/dL (8.7-10.3) 07/23/19 15:06 Phosphorus 3.2 mg/dL (2.4-5.1) 07/23/19 15:06 Magnesium 1.7 mg/dL (1.5-2.4) 07/23/19 15:06 Iron 40 ug/dL (50-170) L 07/23/19 15:06 TIBC 294 ug/dL (228-460) 07/23/19 15:06 % Saturation 13.61 (12.00-45.00) 07/23/19 15:06 Ferritin 78.3 ng/mL (10.0-291.0) 07/23/19 15:06 Total Bilirubin 0.3 mg/dL (0.3-1.2) 07/23/19 15:06 AST 21 U/L (13-35) 07/23/19 15:06 ALT 20 U/L (8-44) 07/23/19 15:06 Alkaline Phosphatase 95 U/L (41-126) 07/23/19 15:06 Total Protein 6.8 g/dL (6.2-8.2) 07/23/19 15:06 Albumin 4.40 g/dL (3.80-4.90) 07/23/19 15:06 Globulin 2.4 g/dL (1.6-3.3) 07/23/19 15:06 Albumin/Globulin Ratio 1.83 g/dL (1.60-3.17) 07/23/19 15:06 Prealbumin 20.0 mg/dL (18.0-42.0) 07/23/19 15:06 Triglycerides 142.0 mg/dL (0.0-149.0) 07/23/19 15:06 Cholesterol 211 mg/dL (0-200) H 07/23/19 15:06 LDL Cholesterol, Calc 112.6 mg/dL (0.0-131.0) 07/23/19 15:06 VLDL Cholesterol, Calc 28.40 mg/dL (5.00-40.00) 07/23/19 15:06 HDL Cholesterol 70.0 mg/dL (40.0-60.0) H 07/23/19 15:06 Cholesterol/HDL Ratio 3.01 07/23/19 15:06 Vitamin A 36 ug/dL (38-106) L 07/23/19 15:06 Vitamin B1 41 ug/L (38-122) 07/23/19 15:06 Vitamin B12 530.0 pg/mL (200.0-944.0) 07/23/19 15:06 Vitamin D 25-Hydroxy 30.7 ng/mL (30.0-100.0) 07/23/19 15:06 Folate 5.8 ng/mL 07/23/19 15:06 TSH 1.400 uIU/mL (0.350-5.500) 07/23/19 15:06 PTH Intact 111.2 pg/mL (14.0-72.0) H 07/23/19 15:06 Copper 1290 ug/L (810-1990) 07/23/19 15:06 Selenium 143 mcg/L (63-160) 07/23/19 15:06 Zinc 91 ug/dL (60-130) 07/23/19 15:06 Iron is low Vitamin A is low PTH is elevated Objective - Labs CBC & Chem 7: 07/23/19 15:06 07/23/19 15:06
[2019-07-23 14:51] VITALS: BP 133/95; PULSE 74; TEMP 98.3; BMI 38.6
[2019-07-23 15:45] LABS: HCT 45.1 % (34.0-46.0); HGB 14.5 gm/dL (11.4-16.0); MCH 27.7 pg (25.0-35.0); MCHC 32.2 g/dL (31.0-37.0); MCV 86.2 fL (80.0-100.0); Platelet Count 229 k/uL (150-450); RBC 5.24 m/uL (3.80-5.40); RDW 14.1 % (11.5-15.5); WBC 5.2 k/uL (3.8-10.6)
[2019-07-23 15:57] LABS: INR 0.9 (<1.2); Partial Thromboplastin Time 26.9 sec (22.0-30.0); Prothrombin Time 9.8 sec (9.0-12.0)
[2019-07-23 23:43] LABS: Magnesium 1.7 mg/dL (1.5-2.4); Phosphorus 3.2 mg/dL (2.4-5.1)
[2019-07-23 23:44] LABS: % Iron Saturation 13.61 (12.00-45.00); African American GFR (CKD) 96.2 (60.0-200.0); Albumin 4.4 g/dL (3.80-4.90); Albumin/Globulin Ratio 1.83 (1.60-3.17); Anion Gap 5.8 mmol/L (4.00-12.00); BUN/Creat Ratio 11.25 Ratio (12.00-20.00); Calcium 9.2 mg/dL (8.7-10.3); Carbon Dioxide 30.2 mmol/L (21.6-31.8); Chol/HDL Ratio 3.01; Globulin 2.4 g/dL (1.6-3.3); LDL Cholesterol,Calculated 112.6 mg/dL (0.0-131.0); Potassium 4.3 mmol/L (3.5-5.5); Total Bilirubin 0.3 mg/dL (0.3-1.2); Total Protein 6.8 g/dL (6.2-8.2); VLDL Calculation 28.4 mg/dL (5.00-40.00)
[2019-07-23 23:50] LABS: Ferritin 78.3 ng/mL (10.0-291.0)
[2019-07-23 23:54] LABS: Folate, Serum 5.8 ng/mL
[2019-07-24 02:02] LABS: Hemoglobin A1C 5.9 % (4.0-6.0)
[2019-07-24 12:22] LABS: Zinc, Serum 91 ug/dL (60-130)
[2019-07-24 13:41] LABS: Vitamin A 36 ug/dL (38-106)
[2019-07-25 09:51] LABS: Vit B1(Thiamine) 41 ug/L (38-122)
[2019-08-04 11:27] LABS: Selenium 143 mcg/L (63-160)
== END | disposition home or self-care (01) ==
LOC: BARWHC3 13:54
PROVIDERS: ATTEND Surgery Plastic and Reconstructive Surgery
DX: Z48.815 Encounter for surgical aftercare following surgery on the digestive system (principal); E66.01 Morbid (severe) obesity due to excess calories; M17.0 Bilateral primary osteoarthritis of knee; M19.072 Primary osteoarthritis, left ankle and foot; G47.33 Obstructive sleep apnea (adult) (pediatric); I11.9 Hypertensive heart disease without heart failure; Z71.3 Dietary counseling and surveillance; E55.9 Vitamin D deficiency, unspecified; E03.9 Hypothyroidism, unspecified; E51.9 Thiamine deficiency, unspecified; K29.60 Other gastritis without bleeding; Z98.84 Bariatric surgery status; Z68.38 Body mass index [BMI] 38.0-38.9, adult; M79.3 Panniculitis, unspecified; Z87.891 Personal history of nicotine dependence; Z88.0 Allergy status to penicillin; Z79.899 Other long term (current) drug therapy; Z79.890 Hormone replacement therapy; Z90.49 Acquired absence of other specified parts of digestive tract; E21.1 Secondary hyperparathyroidism, not elsewhere classified; D50.9 Iron deficiency anemia, unspecified; K90.9 Intestinal malabsorption, unspecified; K76.9 Liver disease, unspecified; N19 Unspecified kidney failure; K50.90 Crohn's disease, unspecified, without complications
CPT/HCPCS: 84255; 84134; 84425; 80061; 80053; 82607; 82728; 82525; 82746; 83540; 83550; 83735; 84100; 84443; 84590; 84630; 85027; 85610; 85730; 82306; 83970; 83036; 97803; G0463; 99211

== ENCOUNTER → 2019-10-08 | Outpatient (CLI) | payer MEDICARE, OTHER ==
[2019-10-08 14:20] VITALS: BP 137/87; PULSE 61; RESP 16; TEMP 97.8; BMI 39.2
--- NOTE | 2019-10-08 14:46 | P.PN ---
Subjective Progress Note Date: 10/08/19 She comes in with drainage from her belly button. She has panniculitis. She is still using Hystatin powder for over 1 year. ABD: Pannus over 10 pounds with hang of her skin. PLAN: 1. Recommend umbilical hernia repair. 2. Panniculectomy evaluation. Objective - Vital Signs Vital signs: Vital Signs Temp 97.8 F 10/08/19 14:18 Pulse 61 10/08/19 14:18 Resp 16 10/08/19 14:18 BP 137/87 10/08/19 14:18 Pulse Ox Intake & Output 10/07/19 10/08/19 10/08/19 18:59 06:59 18:59 Weight 98.883 kg
== END ==
LOC: BARWHC3 13:16
PROVIDERS: ATTEND Surgery Plastic and Reconstructive Surgery
DX: M79.3 Panniculitis, unspecified (principal)
CPT/HCPCS: 99211

== ENCOUNTER → 2019-10-08 | Outpatient (CLI) | payer MEDICARE, OTHER ==
[2019-10-08 16:49] LABS: Basophils # (A) 0.1 k/uL (0-0.2); Basophils % (A) 2 %; Eosinophils # (A) 0.1 k/uL (0-0.7); Eosinophils % (A) 1 %; HCT 45.9 % (34.0-46.0); HGB 14.5 gm/dL (11.4-16.0); Lymphocytes # (A) 2.1 k/uL (1.0-4.8); Lymphocytes % (A) 45 %; MCH 27.9 pg (25.0-35.0); MCHC 31.7 g/dL (31.0-37.0); MCV 88.2 fL (80.0-100.0); Mean Platelet Volume 7.5; Monocytes # (A) 0.3 k/uL (0-1.0); Monocytes % (A) 6 %; Neutrophils # (A) 2.1 k/uL (1.3-7.7); Neutrophils % (A) 45 %; Platelet Count 233 k/uL (150-450); RBC 5.21 m/uL (3.80-5.40); RDW 13.4 % (11.5-15.5); WBC 4.7 k/uL (3.8-10.6)
[2019-10-08 17:13] LABS: ALT 16 U/L (4-34); AST 23 U/L (14-36); African American GFR (CKD) >90 (>60 ml/min/1.73 sqM); Albumin 4.3 g/dL (3.5-5.0); Alkaline Phosphatase 99 U/L (38-126); Anion Gap 6 mmol/L; Blood Urea Nitrogen 8 mg/dL (7-17); Calcium 9.5 mg/dL (8.4-10.2); Carbon Dioxide 31 mmol/L (22-30); Chloride 104 mmol/L (98-107); Glucose 90 mg/dL (74-99); Non-African American GFR(CKD) >90 (>60 ml/min/1.73 sqM); Potassium 4.4 mmol/L (3.5-5.1); Sodium 141 mmol/L (137-145); Total Bilirubin 0.4 mg/dL (0.2-1.3); Total Protein 7.6 g/dL (6.3-8.2)
== END | disposition home or self-care (01) ==
LOC: LABPAT 15:06
PROVIDERS: ATTEND Surgery Plastic and Reconstructive Surgery
DX: Z01.818 Encounter for other preprocedural examination (principal); Z01.812 Encounter for preprocedural laboratory examination
CPT/HCPCS: 36415; 80053; 85025; 93005; 99211

== ENCOUNTER 2019-10-13 05:47 | Day surgery (SDC) | payer MEDICARE ==
[2019-10-09 11:09] VITALS: BMI 39.2
--- NOTE | 2019-10-13 03:45 | P.GSHP ---
History of Present Illness H&P Date: 10/13/19 CHIEF COMPLAINT: Ventral hernia. HISTORY OF PRESENT ILLNESS: The patient is a 53-year-old female who presents with a history of swelling along the umbilicus. Findings were consistent with ventral hernia. Now she presents for further evaluation and management. PAST MEDICAL HISTORY: Please see list. PAST SURGICAL HISTORY: Please see list. MEDICATIONS: Please see list. ALLERGIES: Please see list. SOCIAL HISTORY: No illicit drug use FAMILY HISTORY: No reports of Crohn disease or ulcerative colitis. REVIEW OF ORGAN SYSTEMS: CONSTITUTIONAL: No reports of fevers or chills. GI: Denies any blood in stools or constipation. PHYSICAL EXAM: VITAL SIGNS: Stable GENERAL: Well-developed pleasant female in no acute distress. HEENT: No scleral icterus. Extraocular movements grossly intact. Moist buccal mucosa. NECK: Supple without lymphadenopathy. CHEST: Unlabored respirations. Equal bilateral excursions. CARDIOVASCULAR: Regular rate and rhythm. Distal 2+ pulses. ABDOMEN: Soft, nondistended. Protuberant. Umbilical hernia. MUSCULOSKELETAL: No clubbing, cyanosis, or edema. ASSESSMENT: 1. Ventral hernia. 2. Morbid obesity, BMI 45.2 PLAN: 1. Recommend proceeding with robotic ventral hernia repair with mesh. 2. Benefits and risks of surgical intervention was discussed including possibility of open technique. 3. DVT prophylaxis. 4. Antibiotic prophylaxis. Past Medical History Past Medical History: GERD/Reflux, Osteoarthritis (OA), Thyroid Disorder Additional Past Medical History / Comment(s): CHRONIC PAIN (especially in back), umbilical hernia History of Any Multi-Drug Resistant Organisms: None Reported Past Surgical History: Back Surgery, Bariatric Surgery, Breast Surgery, Cholecystectomy, Orthopedic Surgery, Tubal Ligation Additional Past Surgical History / Comment(s): clau carpal tunnel, tendonitis rt elbow and rt wrist, BREAST REDUCTION 2002. COLONOSCOPY, EGD. RnY (Sleeve Gastrectomy) 07/22/18 (Dr. Libby Carey). umbilical hernia (to be repaired September 2019) Past Anesthesia/Blood Transfusion Reactions: No Reported Reaction Past Psychological History: No Psychological Hx Reported Smoking Status: Former smoker Past Alcohol Use History: Occasional Additional Past Alcohol Use History / Comment(s): Started smoking age 16, 3 cigarettes daily est, QUIT SMOKING 04/2018 Past Drug Use History: None Reported - Past Family History Mother Family Medical History: No Reported History Medications and Allergies Home Medications Medication Instructions Recorded Confirmed Type Cyclobenzaprine [Flexeril] 10 mg PO HS 01/14/18 10/09/19 History Levothyroxine Sodium [Synthroid] 50 mcg PO QAM 07/12/18 10/09/19 History Nystatin 100,000 Unit/gm Powd 1 applic TOPICAL BID #60 powder 06/11/19 10/09/19 Rx [Mycostatin Powder] Calcium Citrate 1,200 mg PO DAILY 06/24/19 10/09/19 History Ergocalciferol [Vitamin D2 50,000 unit PO DAILY 06/24/19 10/09/19 History (DRISDOL)] Vitamin A Acetate [Vitamin A] 10,000 unit PO DAILY 06/24/19 10/09/19 History Omeprazole 40 mg PO 1200 10/09/19 10/09/19 History Allergies Allergy/AdvReac Type Severity Reaction Status Date / Time Penicillins Allergy Severe swelling Verified 10/09/19 11:05 in mouth
[~2019-10-13 05:47] MED LIST changes: +ACETAMINOPHEN TAB 500 MG TAB PO STA; +CLINDAMYCIN 900 MG in DEXTROSE 5% IN WATER 50 ML IVPB ONE; +DEXAMETHASONE SOD PHOSPHATE 10 MG/ML 1 ML VIAL IV ONE; +GABAPENTIN 300 MG CAP PO STA; +HEPARIN SODIUM,PORCINE 5,000 UNIT/ML 1 ML VIAL SQ ONE; +HYDROmorphone 0.5 MG/0.5 ML SYRINGE IVP PRN; +LEVOFLOXACIN 500MG-D5W PMX 500 MG in DEXTROSE/WATER 1 100ML.BAG IVPB ONE; -LIDOCAINE 1% INJ 10MG/ML (20 ML MDV) ONE; +ONDANSETRON 4 MG/2 ML VIAL IVP ONE; -PROPOFOL 10 MG/ML 20 ML VIAL IV ONE; +fentaNYL (PF) 50 MCG/ML 2 ML AMP IVP PRN
[2019-10-13] MEDS ORDERED: DEXAMETHASONE SOD PHOSPHATE 10 MG/ML 1 ML VIAL IV ONE (06:42)
[2019-10-13] MEDS ORDERED: ONDANSETRON 4 MG/2 ML VIAL IVP ONE (06:42)
[2019-10-13] MEDS ORDERED: ePHEDrine SULFATE/0.9% NACL/PF 50 MG/5 ML SYRINGE IV ONE (07:23)
[2019-10-13] MEDS ORDERED: MIDAZOLAM 2 MG/2 ML VIAL ONE (07:23)
[2019-10-13] MEDS ORDERED: ROCURONIUM BROMIDE 10 MG/ML 10 ML VIAL IV ONE (07:23)
[2019-10-13] MEDS ORDERED: PROPOFOL 10 MG/ML 20 ML VIAL IV ONE (07:23)
[2019-10-13] MEDS ORDERED: fentaNYL (PF) 50 MCG/ML 2 ML AMP ONE (07:23)
[2019-10-13] MEDS ORDERED: NEOSTIGMINE 1 MG/ML 10 ML VIAL ONE (07:23)
[2019-10-13] MEDS ORDERED: GLYCOPYRROLATE 0.2 MG/ML 2 ML VIAL ONE (07:23)
[2019-10-13] MEDS ORDERED: LIDOCAINE 1% INJ 10MG/ML (20 ML MDV) ONE (07:23)
[2019-10-13] MEDS ORDERED: LIDOCAINE 1%-EPI 1:100,000 20 ML VIAL SQ ONE (08:15)
[2019-10-13] MEDS ORDERED: LACTATED RINGERS 1,000 ML IV ONE (08:51)
[2019-10-13] MEDS ORDERED: HYDROmorphone 1 MG/ML 1 ML SYRINGE IVP ONE (09:15)
[2019-10-13] MEDS ORDERED: diphenhydrAMINE 50 MG/ML 1 ML VIAL IVP ONE (09:15)
[2019-10-13 09:18] VITALS: TEMP 97.6
[2019-10-13 09:19] VITALS: RESP 16
--- NOTE | 2019-10-13 09:34 | P.OP ---
Date of Procedure: 10/13/19 Description of Procedure: SURGEON: LIBBY CAREY MD PREOPERATIVE DIAGNOSES: 1. Initial incisional hernia with incarceration 2. Umbilical drainage 3. Morbid obesity due to excess calories, BMI 38.9 4. Gastroesophageal reflux disease 5. History of multiple abdominal surgeries POSTOPERATIVE DIAGNOSES: 1. Initial lower abdominal incisional hernia with incarceration, 2 x 7 cm 2. Umbilical drainage 3. Morbid obesity due to excess calories, BMI 38.9 4. Gastroesophageal reflux disease 5. History of multiple abdominal surgeries 6. Moderate peritoneal adhesions greater omentum to anterior abdominal wall OPERATION: 1. Robotic-assisted da Alexey Xi laparoscopic lysis of adhesions over 30 minutes 2. Robotic-assisted da Alexey Xi laparoscopic repair of initial incarcerated incisional hernia without mesh ANESTHESIA: General with local ESTIMATED BLOOD LOSS: 5 mL. SPECIMENS: Incarcerated incisional hernia lower abdomen COMPLICATIONS: None. FINDINGS: 1. Initial incarcerated umbilical and ventral hernia, 2 x 7 cm with contents 2. Severe peritoneal adhesions greater omentum to abdominal wall INDICATIONS: The patient is a 53-year-old female who presents with initial umbilical drainage. Diagnostic studies showed incisional hernia. Surgical intervention with laparoscopic versus robotic and open techniques were reviewed. Placement of mesh was also reviewed. Benefits and risks were thoroughly described. Informed consent was obtained. DESCRIPTION OF PROCEDURE: The patient was brought into the operating room and laid in supine position. After general induction, the abdomen had been prepped and draped in standard sterile fashion. Ioban draping was also placed. Prior to incision, a timeout protocol was confirmed with surgical team regarding the patient's name including procedures to be performed. The robot was primed prior to the procedure. A field block using local anesthetic was placed along hernia site including the proposed port sites. Initial incision was made with an #11 blade along the left upper quadrant. A 0 degree 5 mm laparoscopic trocar entry was performed. Diagnostic laparoscopy demonstrated moderate peritoneal adhesions greater omentum to abdominal wall with incarcerated incisional hernia and incarcerated umbilical hernia. Three 8 mm trocars were placed along the left lateral abdominal wall. Placements of the ports were 15 cm from the target anatomy and 9 cm apart. The [employer] Xi robot was previously primed, prepped and draped then docked along the left side of the patient. I then sat at the robot Pro[employer]fort[employer] Xi console where working arms of the robot were vessel sealer, scissors, needle route salesman and driver, and graspers placed by the physician's assistant. To expose the extent of her incisional hernia, extensive lysis of adhesions were addressed with vessel sealer as well as scissors for over 30 minutes. Attention was brought to the umbilicus and lower abdominal incision where an incarcerated umbilical hernia was identified containing fat and omentum. The incarcerated contents was reduced as the peritoneal fat was cleaned from the abdominal wall. No urachal cyst was found with her history of umbilical drainage. Next, hemostasis was checked with cautery. The hernia defect was oversewn using #1 VLOC non-absorbable with fascial imbrication. Mesh placement was avoided with her severe adhesions including history of drainage of the umbilicus. A final endoscopic imaging was obtained. All instruments and pneumoperitoneum were evacuated from the abdominal cavity. The da Alexey Xi robot was undocked from the patient. I re-scrubbed into the case for closure of incisions. The umbilicus was explored with two umbilicus caused from her lower midline incision. The incisions were reapproximated using 4-0 Monocryl in an interrupted subcuticular fashion. Exofin liquid glue was applied to the skin after cleansing the skin with normal saline and dilute hydrogen peroxide. An abdominal binder was placed. At the end of the procedure, needle, sponge, and instrument count had been verified correct by surgical consultant. The patient was taken to the postanesthesia care unit in stable condition. Plan - Discharge Summary Discharge Rx Participant: No New Discharge Prescriptions: New Ibuprofen [Motrin] 600 mg PO Q8HR PRN #30 tab PRN Reason: Pain Acetaminophen Tab [Tylenol Tab] 1,000 mg PO Q6HR PRN #30 tablet PRN Reason: Pain Continue Cyclobenzaprine [Flexeril] 10 mg PO HS Levothyroxine Sodium [Synthroid] 50 mcg PO QAM Nystatin 100,000 Unit/gm Powd [Mycostatin Powder] 1 applic TOPICAL BID #60 powder Calcium Citrate 1,200 mg PO DAILY Ergocalciferol [Vitamin D2 (DRISDOL)] 50,000 unit PO DAILY Vitamin A Acetate [Vitamin A] 10,000 unit PO DAILY Omeprazole 40 mg PO 1200 Discharge Medication List Cyclobenzaprine [Flexeril] 10 mg PO HS 01/14/18 [History] Levothyroxine Sodium [Synthroid] 50 mcg PO QAM 07/12/18 [History] Nystatin 100,000 Unit/gm Powd [Mycostatin Powder] 1 applic TOPICAL BID #60 powder 06/11/19 [Rx] Calcium Citrate 1,200 mg PO DAILY 06/24/19 [History] Ergocalciferol [Vitamin D2 (DRISDOL)] 50,000 unit PO DAILY 06/24/19 [History] Vitamin A Acetate [Vitamin A] 10,000 unit PO DAILY 06/24/19 [History] Omeprazole 40 mg PO 1200 10/09/19 [History] Acetaminophen Tab [Tylenol Tab] 1,000 mg PO Q6HR PRN #30 tablet 10/13/19 [Rx] Ibuprofen [Motrin] 600 mg PO Q8HR PRN #30 tab 10/13/19 [Rx] Follow up Appointment(s)/Referral(s): Libby Carey MD [STAFF PHYSICIAN] - 10/21/19 Patient Instructions/Handouts: Abdominal Binder (DC), Ventral Hernia Repair (GEN) Activity/Diet/Wound Care/Special Instructions: Wear abdominal binder at all times No lifting over 4 pounds in 4 weeks until Nov 10. January shower. No bath tub soaks for two weeks until Oct 27 Diet as tolerated. No driving while on narcotics. Use Tylenol and ibuprofen scheduled for the next 24-48 hours for best pain relief. Use ice along incisions for the today to prevent swelling. Discharge Disposition: HOME SELF-CARE
[2019-10-13] MEDS ORDERED: ACETAMINOPHEN TAB 500 MG TAB PO ONE (11:44)
[2019-10-13 11:48] VITALS: BP 143/74; PULSE 85
== END 2019-10-13 12:37 | disposition home or self-care (01) ==
LOC: OR 05:47
PROVIDERS: ATTEND Surgery Plastic and Reconstructive Surgery
DX: K43.0 Incisional hernia with obstruction, without gangrene (principal); K66.0 Peritoneal adhesions (postprocedural) (postinfection); E66.01 Morbid (severe) obesity due to excess calories; Z68.38 Body mass index [BMI] 38.0-38.9, adult; K21.9 Gastro-esophageal reflux disease without esophagitis; M19.90 Unspecified osteoarthritis, unspecified site; E07.9 Disorder of thyroid, unspecified; G89.29 Other chronic pain; Z98.84 Bariatric surgery status; Z90.49 Acquired absence of other specified parts of digestive tract; Z98.51 Tubal ligation status; Z87.891 Personal history of nicotine dependence; Z79.890 Hormone replacement therapy; Z79.899 Other long term (current) drug therapy; Z88.0 Allergy status to penicillin
CPT/HCPCS: 88302; 49655; J2250; J1200; J1644; J1100; J2710; J2405; J1956; J2001; J3010; J1170; J2704

== ENCOUNTER → 2019-11-12 | Outpatient (CLI) | payer MEDICARE ==
[2019-11-12 13:46] VITALS: BP 120/84; PULSE 63; RESP 16; TEMP 97.9
--- NOTE | 2019-11-12 14:11 | P.PN ---
Subjective Progress Note Date: 11/12/19 DATE OF SERVICE: 11/12/2019 CHIEF COMPLAINT: Status post sleeve gastrectomy HISTORY OF PRESENT ILLNESS: Alexa Anna is a 53-year-old female who is status post sleeve gastrectomy 07/22/2018. She is 2 years out. She is status post lysis of adhesions, 10/13/2019. She is eating peanut butter and jelly sandwiches. She has lost only 30 pounds. She is eating fish and eating meat. She eats brown rice and grits. Her protein intake is high and she is snacking. She comes in soreness along the left lower quadrant incision. At height of 5 feet 2.5 inches, her ideal body weight is 135 pounds. Her highest weight was 252 pounds. She comes in 217 pounds from 218 pounds, over 1 month ago. She has lost 1 pound in 1 month. Lifetime weight loss of 35 pounds. Body mass index is 45.4 down to 39.1. Lifetime percent excess weight loss is 30 %. PHYSICAL EXAM: VITAL SIGNS: Height 5 foot 2.5 inches, weight 217 pounds. BMI 39.1 Vital Signs Temp 97.9 F 11/12/19 13:44 Pulse 63 11/12/19 13:44 Resp 16 11/12/19 13:44 BP 120/84 11/12/19 13:44 Pulse Ox 99 11/12/19 13:44 GENERAL: Well-developed in no acute distress. HEENT: No scleral icterus. Extraocular movements grossly intact. Hears conversational speech. No nasal drainage. NECK: Supple without lymphadenopathy. CHEST: Nonlabored respirations with equal bilateral excursions. CARDIOVASCULAR: Regular rate and regular rhythm. Distal 2+ pulses. ABDOMEN: Incisions are clean, dry, and intact. Tenderness at left upper qu adrant. MUSCULOSKELETAL: No clubbing, cyanosis. NEURO: No focal or lateralizing signs. Cranial nerves 2 through 12 grossly within normal limits. PSYCH: Appropriate affect. Alert and oriented to person, place and time. SKIN: Good skin turgor. Well perfused. ASSESSMENT: 1. Morbid obesity due to excess calories 2. Body mass index of 45.4 to 39.1 3. Osteoarthritis of the knees. 4. Osteoarthritis of the left ankle. 5. Osteoarthritis of the lower back. 6. Obstructive sleep apnea. 7. Hypertensive heart disease. 8. Dietary surveillance and counseling 9. Vitamin D deficiency 10. Thiamine deficiency 11. H. pylori gastritis 12. Status post sleeve gastrectomy 13. Panniculitis 14. Umbilical hernia PLAN: 1. Recommend dietary education. 2. She is looking for panniculectomy. 3. Dietary journal advised 4. Okay for exercise and message incisions Objective - Vital Signs Vital signs: Vital Signs Temp 97.9 F 11/12/19 13:44 Pulse 63 11/12/19 13:44 Resp 16 11/12/19 13:44 BP 120/84 11/12/19 13:44 Pulse Ox 99 11/12/19 13:44 Intake & Output 11/11/19 11/12/19 11/12/19 18:59 06:59 18:59 Weight 98.43 kg
[2019-11-12 15:38] VITALS: BMI 39.0
== END | disposition home or self-care (01) ==
LOC: BARWHC3 12:55
PROVIDERS: ATTEND Surgery Plastic and Reconstructive Surgery
DX: E66.01 Morbid (severe) obesity due to excess calories (principal); Z68.39 Body mass index [BMI] 39.0-39.9, adult; Z98.84 Bariatric surgery status; Z71.3 Dietary counseling and surveillance; M17.0 Bilateral primary osteoarthritis of knee; M19.072 Primary osteoarthritis, left ankle and foot; M47.816 Spondylosis without myelopathy or radiculopathy, lumbar region; G47.33 Obstructive sleep apnea (adult) (pediatric); I11.9 Hypertensive heart disease without heart failure; E55.9 Vitamin D deficiency, unspecified; B96.81 Helicobacter pylori [H. pylori] as the cause of diseases classified elsewhere; K29.70 Gastritis, unspecified, without bleeding; M79.3 Panniculitis, unspecified; K42.9 Umbilical hernia without obstruction or gangrene; E51.9 Thiamine deficiency, unspecified
CPT/HCPCS: 97803; G0463; 99211

== ENCOUNTER → 2022-01-09 | Outpatient (CLI) | payer MEDICARE ==
[2022-01-09 14:22] LABS: HCT 43.4 % (37.2-46.3); HGB 13.7 g/dL (12.0-15.0); MCHC 31.6 g/dL (32.0-37.0); MCV 88.6 fL (80.0-97.0); NRBC Per 100 WBC 0 /100 WBCS (0.0-0.0); Platelet Count 207 X 10*3/uL (140-440); RDW 13.5 % (11.5-14.5); WBC 4.69 X 10*3/uL (4.50-10.00)
[2022-01-09 15:08] LABS: ALT 19 U/L (8-44); AST 21 U/L (13-35); African American GFR (CKD) 94.2 (60.0-200.0); Albumin 3.4 g/dL (3.8-4.9); Albumin/Globulin Ratio 1.51 (1.60-3.17); Alkaline Phosphatase 60 U/L (41-126); BUN/Creat Ratio 9.26 Ratio (12.00-20.00); Blood Urea Nitrogen 7.4 mg/dL (9.0-27.0); Calcium 8.9 mg/dL (8.7-10.3); Carbon Dioxide 27.2 mmol/L (20.0-27.5); Chloride 109 mmol/L (96-109); Globulin 2.2 g/dL (1.6-3.3); Glucose 98 mg/dL (70-110); LDL Cholesterol,Calculated 120.1 mg/dL (0.0-131.0); Non-African American GFR(CKD) 81.3 (60.0-200.0); Potassium 4.4 mmol/L (3.5-5.5); Sodium 144 mmol/L (135-145); Total Protein 5.6 g/dL (6.2-8.2)
== END | disposition home or self-care (01) ==
LOC: LABWHC1 08:03
PROVIDERS: ATTEND Physician Assistant
DX: Z00.00 Encounter for general adult medical examination without abnormal findings (principal)
CPT/HCPCS: 36415; 80053; 80061; 82607; 83036; 84436; 84443; 85027

== ENCOUNTER → 2023-07-04 | Outpatient (CLI) | payer MEDICARE, OTHER ==
[2023-07-04 17:08] VITALS: BP 132/84; PULSE 71; TEMP 98.2; BMI 41.7
--- NOTE | 2023-07-04 17:30 | P.BASOAP ---
Subjective Progress Note Date: 07/04/23 She comes in with worsening reflux with sleeve. Risk of hiatal hernia. EGD advised. May need revision. REcommend labs. Omeprazole sent Objective - Vital Signs Vital signs: Vital Signs Temp 98.2 F 07/04/23 16:52 Pulse 71 07/04/23 16:52 Resp BP 132/84 07/04/23 16:52 Pulse Ox FiO2 Intake & Output 07/03/23 07/04/23 07/04/23 18:59 06:59 18:59 Weight 105.233 kg Assessment/Plan Plan: Date: 07/04/23 Initial Weight: 114.305 kg Initial BMI: 45.3 Current Weight: 105.233 kg Current BMI: 41.7 Type of Surgery: Total Volume in Band: Previous Volume: Volume Removed: Volume Added: Band Size:
== END ==
LOC: BARWHC3 15:50
PROVIDERS: ATTEND Surgery Plastic and Reconstructive Surgery
DX: Z53.9 Procedure and treatment not carried out, unspecified reason (principal)
CPT/HCPCS: 99211

== ENCOUNTER 2023-07-05 08:38 | Day surgery (SDC) | payer MEDICARE, OTHER ==
[~2023-07-05 08:38] MED LIST changes: -ACETAMINOPHEN TAB 500 MG TAB PO STA; -CLINDAMYCIN 900 MG in DEXTROSE 5% IN WATER 50 ML IVPB ONE; -DEXAMETHASONE SOD PHOSPHATE 10 MG/ML 1 ML VIAL IV ONE; -GABAPENTIN 300 MG CAP PO STA; -HEPARIN SODIUM,PORCINE 5,000 UNIT/ML 1 ML VIAL SQ ONE; -HYDROmorphone 0.5 MG/0.5 ML SYRINGE IVP PRN; -LEVOFLOXACIN 500MG-D5W PMX 500 MG in DEXTROSE/WATER 1 100ML.BAG IVPB ONE; -LIDOCAINE 1% 20 ML VIAL (10MG/ML) FOR IV START INTRADERMA PRN; -MIDAZOLAM 2 MG/2 ML VIAL IV PRN; -ONDANSETRON 4 MG/2 ML VIAL IVP ONE; -fentaNYL (PF) 50 MCG/ML 2 ML AMP IVP PRN
--- NOTE | 2023-07-05 09:03 | P.GSHP ---
History of Present Illness H&P Date: 07/05/23 CHIEF COMPLAINT: GERD HISTORY OF PRESENT ILLNESS: The patient is a 57-year-old female who presents reports gastroesophageal reflux disease. Upper endoscopy was offered for further evaluation and management. PAST MEDICAL HISTORY: Please see list. PAST SURGICAL HISTORY: Please see list. MEDICATIONS: Please see list. ALLERGIES: Please see list. SOCIAL HISTORY: No illicit drug use FAMILY HISTORY: No reports of Crohn disease or ulcerative colitis. REVIEW OF ORGAN SYSTEMS: CONSTITUTIONAL: No reports of fevers or chills. GI: Denies any blood in stools or constipation. PHYSICAL EXAM: VITAL SIGNS: Stable GENERAL: Well-developed and pleasant in no acute distress. HEENT: No scleral icterus. Extraocular movements grossly intact. Moist buccal mucosa. NECK: Supple without lymphadenopathy. CHEST: Unlabored respirations. Equal bilateral excursions. CARDIOVASCULAR: Regular rate and rhythm. Distal 2+ pulses. ABDOMEN: Soft, nondistended. MUSCULOSKELETAL: No clubbing, cyanosis, or edema. ASSESSMENT: 1. Gastroesophageal reflux disease PLAN: 1. Recommend proceeding with an upper endoscopy Past Medical History Past Medical History: GERD/Reflux, Osteoarthritis (OA) Additional Past Medical History / Comment(s): CHRONIC PAIN (especially in back), History of Any Multi-Drug Resistant Organisms: None Reported Past Surgical History: Back Surgery, Bariatric Surgery, Breast Surgery, Cholecystectomy, Hernia Repair, Orthopedic Surgery, Tubal Ligation Additional Past Surgical History / Comment(s): clau carpal tunnel, tendonitis rt elbow and rt wrist, BREAST REDUCTION 2002. COLONOSCOPY, EGD. RnY (Sleeve Gastrectomy) 07/22/18 (Dr. Libby Carey). umbilical hernia (to be repaired September 2019) Past Anesthesia/Blood Transfusion Reactions: No Reported Reaction Past Psychological History: No Psychological Hx Reported Smoking Status: Current some day smoker Past Alcohol Use History: Occasional Additional Past Alcohol Use History / Comment(s): Started smoking age 16, 2 cigarettes daily est, starts and stops Past Drug Use History: None Reported - Past Family History Mother Family Medical History: No Reported History Medications and Allergies Home Medications Medication Instructions Recorded Confirmed Type Omeprazole 40 mg PO 1200 10/09/19 07/04/23 History Unk Iron Supp 1 tab PO DAILY 07/03/23 07/04/23 History Unk Vitamin B 12 Inj 1 injection IM QMONTHLY 07/03/23 07/04/23 History HYDROcodone/APAP 7.5-325MG [[place] 1 tab PO Q6HR PRN 07/04/23 07/04/23 History 7.5-325] Omeprazole [PriLOSEC] 40 mg PO DAILY #90 cap 07/04/23 Rx Allergies Allergy/AdvReac Type Severity Reaction Status Date / Time Penicillins Allergy Severe swelling Verified 07/03/23 11:36 in mouth
[2023-07-05 09:28] VITALS: RESP 16; TEMP 96.9
[2023-07-05] MEDS ORDERED: LIDOCAINE 1% INJ 10MG/ML (20 ML MDV) ONE (10:06)
[2023-07-05] MEDS ORDERED: PROPOFOL 10 MG/ML 20 ML VIAL IV ONE (10:06)
[2023-07-05 11:31] VITALS: BP 157/89; PULSE 55
--- NOTE | 2023-07-05 11:42 | P.PCN ---
Date of Procedure: 07/05/23 Description of Procedure: PREOPERATIVE DIAGNOSIS: Status post sleeve gastrectomy. Gastroesophageal reflux disease. Epigastric abdominal pain. Atypical chest pain POSTOPERATIVE DIAGNOSIS: Gastroesophageal reflux disease. Epigastric abdominal pain. Erosive esophagitis, chronic. Atypical chest pain Diaphragmatic hiatal hernia without obstruction. Chronic superficial gastritis. OPERATION: Esophagogastroduodenoscopy with cold forceps biopsies along the antrum. SURGEON: Libby Carey MD ANESTHESIA: MAC. INDICATIONS: The patient is a 57-year-old female who presents with a history of sleeve gastrectomy with abdominal pain. She is over 2 years out from her bariatric procedure. Benefits and risks of the procedure were described. Informed consent was obtained. DESCRIPTION: The patient was brought into the endoscopy suite and laid in the left lateral decubitus position. An Olympus gastroscope was passed along the posterior oropharynx down to the distal esophagus where the squamocolumnar junction was at 36 centimeters from the incisors remarkable for chronic erosive esophagitis, LA grade B without ulceration. The stomach was entered. Chronic gastritis albeit mild was found along the antrum with cold biopsies obtained. The first through third portion of the duodenum was examined and biopsies obtained. The scope again had easily retroflexed along the antrum. The stomach was desufflated. The patient tolerated the procedure well. FINDINGS: No acute ulceration found along her sleeve. No corkscrewing sleeve gastrectomy. Squamocolumnar junction at 36 cm from the incisors. Diaphragmatic hiatus at 36 cm. Gastric reservoir within normal limits. LA grade A erosive esophagitis with biopsies obtained. Duodenum with biopsies obtained Chronic gastritis with biopsies obtained RECOMMENDATIONS: Upper endoscopy as needed. May benefit from antireflux operation. Continue with current therapy. Stat EKG for atypical chest pain Plan - Discharge Summary Discharge Rx Participant: No New Discharge Prescriptions: Continue RX: Omeprazole 40 mg PO 1200 Unk Vitamin B 12 Inj 1 injection IM QMONTHLY Unk Iron Supp 1 tab PO DAILY RX: HYDROcodone/APAP 7.5-325MG [Simms 7.5-325] 1 tab PO Q6HR PRN PRN Reason: Pain RX: Omeprazole [PriLOSEC] 40 mg PO DAILY #90 cap Discharge Medication List RX: Omeprazole 40 mg PO 1200 10/09/19 [History] Unk Iron Supp 1 tab PO DAILY 07/03/23 [History] Unk Vitamin B 12 Inj 1 injection IM QMONTHLY 07/03/23 [History] RX: HYDROcodone/APAP 7.5-325MG [Simms 7.5-325] 1 tab PO Q6HR PRN 07/04/23 [History] RX: Omeprazole [PriLOSEC] 40 mg PO DAILY #90 cap 07/04/23 [Rx] [facility]Ref[place] [facility] [place] Patient Instructions/Handouts: GERD (Gastroesophageal Reflux Disease) (ED) Discharge Disposition: HOME SELF-CARE
[2023-07-05 11:47] LABS: HCT 44.1 % (34.0-46.0); HGB 14.5 gm/dL (11.4-16.0); MCH 28.9 pg (25.0-35.0); MCHC 32.9 g/dL (31.0-37.0); MCV 87.9 fL (80.0-100.0); Mean Platelet Volume 7.7; Platelet Count 143 k/uL (150-450); RBC 5.02 m/uL (3.80-5.40); RDW 14.6 % (11.5-15.5); WBC 6.8 k/uL (3.8-10.6)
[2023-07-05 11:56] LABS: ALT 19 U/L (4-34); AST 20 U/L (14-36); African American GFR (CKD) >90 (>60 ml/min/1.73 sqM); Albumin 2.8 g/dL (3.5-5.0); Alkaline Phosphatase 58 U/L (38-126); Anion Gap 3 mmol/L; Blood Urea Nitrogen 14 mg/dL (7-17); Calcium 8.3 mg/dL (8.4-10.2); Carbon Dioxide 28 mmol/L (22-30); Chloride 106 mmol/L (98-107); Glucose 82 mg/dL (74-99); Magnesium 1.6 mg/dL (1.6-2.3); Non-African American GFR(CKD) >90 (>60 ml/min/1.73 sqM); Phosphorus 3.5 mg/dL (2.5-4.5); Potassium 4.3 mmol/L (3.5-5.1); Sodium 137 mmol/L (137-145); Total Bilirubin 0.5 mg/dL (0.2-1.3); Total Protein 4.9 g/dL (6.3-8.2)
[2023-07-05 12:03] LABS: INR 0.9 (<1.2); Partial Thromboplastin Time 23.9 sec (22.0-30.0); Prothrombin Time 10.3 sec (10.0-12.5)
[2023-07-05 16:53] LABS: % Iron Saturation 33.22 (12.00-45.00); Chol/HDL Ratio 2.85 Ratio; Ferritin 38.5 ng/mL (10.0-291.0); Iron 94 UG/DL (50-170); Total Iron Binding Capacity 283 UG/DL (228-460); VLDL Calculation 19.88 mg/dL (5.00-40.00)
[2023-07-06 12:25] LABS: Zinc, Serum 76 ug/dL (60-130)
[2023-07-09 11:41] LABS: Vit B1(Thiamine) 79 ug/L (38-122)
== END 2023-07-05 11:50 | disposition home or self-care (01) ==
LOC: ORWHC2ENDO 08:38
PROVIDERS: ATTEND Surgery Plastic and Reconstructive Surgery
DX: K21.00 Gastro-esophageal reflux disease with esophagitis, without bleeding (principal); K22.10 Ulcer of esophagus without bleeding; K44.9 Diaphragmatic hernia without obstruction or gangrene; K29.30 Chronic superficial gastritis without bleeding; F17.200 Nicotine dependence, unspecified, uncomplicated; F10.90 Alcohol use, unspecified, uncomplicated; Z98.84 Bariatric surgery status; M19.90 Unspecified osteoarthritis, unspecified site; Z90.49 Acquired absence of other specified parts of digestive tract; Z98.890 Other specified postprocedural states; Z98.51 Tubal ligation status; Z88.0 Allergy status to penicillin; Z79.899 Other long term (current) drug therapy
CPT/HCPCS: 84255; 84134; 88305; 84425; 80061; 80053; 82607; 82728; 82525; 82746; 83540; 83550; 83735; 84100; 84443; 84590; 84484; 84630; 85027; 85610; 85730; 82306; 83970; 83036; 43239; J2001; J2704

== ENCOUNTER → 2023-11-28 | Outpatient (CLI) | payer MEDICARE ==
--- NOTE | 2023-11-28 15:48 | P.BASOAP ---
Subjective Progress Note Date: 11/28/23 She is gaining weight. She has cravings. She has sugar addiction and eating poor foods. Stress test. Needs hiatal hernia repair. Needs 235 to 223, 12 pounds. Assessment/Plan Plan: Date: Initial Weight: 114.305 kg Initial BMI: Current Weight: Current BMI: Type of Surgery: Total Volume in Band: Previous Volume: Volume Removed: Volume Added: Band Size:
[2023-11-28 17:26] VITALS: BP 126/87; PULSE 69; TEMP 98.1; BMI 42.3
== END ==
LOC: BARWHC3 14:00
PROVIDERS: ATTEND Surgery Plastic and Reconstructive Surgery
DX: E66.01 Morbid (severe) obesity due to excess calories (principal); Z53.9 Procedure and treatment not carried out, unspecified reason
CPT/HCPCS: 99211